=== PATIENT | male | born 1955 | race Caucasian/White ===

== ENCOUNTER → 2019-02-14 | Outpatient (CLI) | payer BC, OTHER ==
--- NOTE | 2019-02-14 10:54 | PCVCIMAG ---
APPROVED REPORT Study performed: 02/14/2019 08:54:53 EXAM: Comprehensive 2D, Doppler, and color-flow Echocardiogram Patient Location: Echo lab Status: routine BSA: 2.40 HR: 55 bpmBP: 164/92 mmHg Rhythm: Bradycardia Other Information Study Quality: Adequate Indications Dyspnea CAD Fatigue aortic stenosis 2D Dimensions IVSd: 13.41 (7-11mm)LVOT Diam: 22.08 (18-24mm) LVDd: 50.06 mm PWd: 13.99 (7-11mm)Ascending Ao: 40.52 (22-36mm) LVDs: 36.97 (25-40mm) Left Atrium: 42.75 (27-40mm) Aortic Root: 35.51 mm LV Single Plane 4CH: 50.08 % LV Single Plane 2CH: 54.97 % Biplane EF: 52.7 % Volumes Left Atrial Volume (Systole) Single Plane 4CH: 98.68 mLSingle Plane 2CH: 82.20 mL LA ESV Index: 38.00 mL/m2 Aortic Valve AoV Peak Akbar.: 3.90 m/s AO Peak Gr.: 60.79 mmHgLVOT Max P.53 mmHg AO Mean Gr.: 30.19 mmHgLVOT Mean P.55 mmHg AO V2 Mean: 2.50 m/sLVOT Max V: 1.28 m/s AO V2 VTI: 93.32 cmLVOT Mean V: 0.88 m/s THOMAS (VTI): 1.22 [id number] V1 VTI: 29.71 cm THOMAS Vmax: 1.25 cm2 SV (LVOT): 113.73 mL Mitral Valve E/A Ratio: 0.9 MV Decel. Time: 318.22 ms MV E Max Akbar.: 0.71 m/s MV A Akbar.: 0.79 m/s IVRT: 110.73 ms Pulmonary Valve PV Peak Akbar.: 1.13 m/sPV Peak Gr.: 5.11 mmHg Pulmonary Vein P Vein S: 0.38 m/sP Vein A: 0.28 m/s P Vein D: 0.41 m/sP Vein A Dur.: 148.8 msec P Vein S/D Ratio: 0.93 Tricuspid Valve TR Peak Akbar.: 2.45 m/s TR Peak Gr.: 24.01 mmHg TV Vmax: 0.53 m/s Left Ventricle The left ventricle is normal size. There is normal LV segmental wall motion. Mild to moderate concentric left ventricular hypertrophy. Left ventricular systolic function is normal. The left ventricular ejection fraction is within the normal range. LVEF is 55%. Grade I - abnormal relaxation pattern. Right Ventricle The right ventricle is normal size. The right ventricular systolic function is normal. Atria Left atrium is mildly dilated. The right atrium size is normal. Aortic Valve The aortic valve is moderately to severely calcified. Trace aortic regurgitation. There is moderate valvular aortic stenosis. Calculated aortic valve area is 1.2 cm2 with a mean pressure gradient of 27 mmHg. Mitral Valve The mitral valve is normal in structure. There is no mitral valve regurgitation noted. No evidence of mitral valve stenosis. Tricuspid Valve The tricuspid valve is normal in structure. Trace tricuspid regurgitation with PAP of 31 mmHg. Pulmonic Valve The pulmonary valve is normal in structure. Mild pulmonic regurgitation. Great Vessels The aortic root is normal in size. Ascending aorta is dilated to 4.1 cm. IVC is normal in size and collapses >50% with inspiration. Pericardium There is no pericardial effusion. There is no pleural effusion. <Conclusion> The left ventricle is normal size. Mild to moderate concentric left ventricular hypertrophy. Left ventricular systolic function is normal. Grade I - abnormal relaxation pattern. The right ventricle is normal size. Left atrium is mildly dilated. There is moderate valvular aortic stenosis. Calculated aortic valve area is 1.2 cm2 with a mean pressure gradient of 27 mmHg. There is no mitral valve regurgitation noted. Trace tricuspid regurgitation with PAP of 31 mmHg.
== END | disposition home or self-care (01) ==
LOC: PCVCIMAG 08:59
PROVIDERS: ATTEND Internal Medicine Cardiovascular Disease
DX: I25.10 Atherosclerotic heart disease of native coronary artery without angina pectoris (principal); R06.00 Dyspnea, unspecified; R53.83 Other fatigue; I51.7 Cardiomegaly; I35.0 Nonrheumatic aortic (valve) stenosis
CPT/HCPCS: 93306

== ENCOUNTER → 2019-03-07 | Outpatient (CLI) | payer BC, OTHER | END | disposition home or self-care (01) | LOC: PCVCCLINIC 11:16 | PROVIDERS: ATTEND Internal Medicine Cardiovascular Disease | DX: I25.10 Atherosclerotic heart disease of native coronary artery without angina pectoris (principal); I35.0 Nonrheumatic aortic (valve) stenosis; I10 Essential (primary) hypertension; E78.00 Pure hypercholesterolemia, unspecified; E78.5 Hyperlipidemia, unspecified | CPT/HCPCS: 93005; G0463 ==